=== PATIENT | female | born 1965 | race Caucasian/White ===

== ENCOUNTER 2018-07-30 03:19 | Inpatient (IN) ==
[2018-07-30] MEDS ORDERED: FUROSEMIDE 40 MG/4 ML VIAL IV STA (03:31)
[2018-07-30] MEDS ORDERED: ALBUT/IPRATROP 3MG/0.5MG NEB 3 ML VIAL ONE (03:31)
[2018-07-30] MEDS ORDERED: ALBUT/IPRATROP 3MG/0.5MG NEB 3 ML VIAL NEB STA (03:31)
[2018-07-30 03:43] LABS: Hematocrit (blood only) 41.8 % (37-47); Hemoglobin 13.9 g/dL (12.0-16.0); Mean Corpuscular Hgb Conc 33.3 g/dL (32-36); Mean Corpuscular Volume 86.9 fL (80-100); Mean Platelet Volume 10.1 fL (7.4-10.4); Platelet Count 375 K/uL (130-400); RDW Coefficient of Variation 16.4 % (11.5-14.5); RDW Standard Deviation 52.4 fL (36.4-46.3); Red Blood Count 4.81 M/uL (4.2-5.4); White Blood Count 14.12 K/uL (4.8-10.8)
[2018-07-30 03:59] LABS: Prothrombin Time 10.1 Seconds (9.0-12.0)
[2018-07-30 04:21] LABS: Alanine Aminotransferase 33 U/L (12-78); Albumin Globulin Ratio 0.7 (0.9-2); Albumin Level 3.4 gm/dl (3.4-5.0); Alkaline Phosphatase 80 U/L (45-117); Aspartate Aminotransferase 28 U/L (15-37); BUN Creatinine Ratio 14.6 (10-20); Bilirubin,Total 0.2 mg/dl (0.2-1); Blood Urea Nitrogen 10 mg/dl (7-18); Carbon Dioxide 23 mmol/L (21-32); Chloride 107 mmol/L (98-107); Creatinine Clr Calc Pharmacy 116.1 ml/min; Est GFR (African American) 114.3; Est GFR (Non-African American) 98.6; Globulin 4.8 gm/dl (2.5-4.0); Glucose 246 mg/dl (70-99); NT Pro B Type Natriuretic Pept 872 pg/ml (0-900); Potassium 3.8 mmol/L (3.5-5.1); Sodium 138 mmol/L (136-145); Total Protein 8.2 gm/dl (6.4-8.2); Troponin I < 0.015 ng/ml (0-0.045)
[2018-07-30 04:37] LABS: Basophils # (auto) 0.07 K/uL (0-0.2); Basophils % (auto) 0.5 %; Eosinophils # (auto) 0.53 K/uL (0-0.5); Eosinophils % (auto) 3.8 %; Immature Granulocytes # (auto) 0.06 K/uL (0.00-0.02); Immature Granulocytes % (auto) 0.4 %; Lymphocytes # (auto) 5.13 K/uL (1.2-3.4); Lymphocytes % (auto) 36.3 %; Monocytes # (auto) 0.81 K/uL (0.11-0.59); Monocytes % (auto) 5.7 %; Neutrophils # (auto) 7.52 K/uL (1.4-6.5); Neutrophils % (auto) 53.3 %
[2018-07-30 05:06] LABS: Appearance Urine Clear (Clear); Bilirubin Urine Negative (Negative); Blood Urine Negative (Negative); Color Urine Yellow; Glucose Urine UA 1+ (Negative); Ketones Urine Negative (Negative); Leukocyte Esterase Urine Negative (Negative); Nitrite Urine Negative (Negative); Protein Urine Negative (Negative); Specific Gravity Urine 1.012 (1.000-1.030); Urobilinogen Urine Negative (Negative); pH Urine 5.5 (4.5-7.5)
[2018-07-30] MEDS ORDERED: OPTIRAY 320 125ml IV PRN (05:14)
--- NOTE | 2018-07-30 06:16 | Emergency Department Note ---
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 Per EMS, the patient was picked up at a hotel with a O2 sat in the 70s. 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 The patient reports that the SOB occurred suddenly and woke her up from her sleep, noting that she felt normal before bed. She complains of left-sided chest pain and "feeling like there was gas" in her abdomen. The patient denies any current nausea. She notes that she has a hernia and diabetes. She denies any history of emphysema and COPD. The patient reports that she is a current every day smoker. She states that she traveled to [place] from [place] within the past few days. The patient notes that she takes Lasix. Home Medications Home Medications Medication Instructions Recorded Confirmed Type amlodipine 10 mg PO DAILY 07/30/18 07/30/18 History aspirin 81 mg PO DAILY 07/30/18 07/30/18 History furosemide [Lasix] 20 mg PO DAILY 07/30/18 07/30/18 History glimepiride 2 mg PO BID 07/30/18 07/30/18 History ibuprofen 800 mg PO TID PRN 07/30/18 07/30/18 History insulin glargine [Lantus Solostar 70 unit SUBCUT HS 07/30/18 07/30/18 History U-100 Insulin] losartan 50 mg PO DAILY 07/30/18 07/30/18 History metformin 1,000 mg PO BID 07/30/18 07/30/18 History metoprolol tartrate 50 mg PO BID 07/30/18 07/30/18 History omeprazole 20 mg PO BID 07/30/18 07/30/18 History sitagliptin [Januvia] 100 mg PO DAILY 07/30/18 07/30/18 History Allergies Allergy/AdvReac Type Severity Reaction Status Date / Time ketorolac [From Toradol] Allergy Unknown Unknown Verified 07/30/18 03:57 Past Med/Surg History Medical History Diabetes Hernia Hypertension Surgical History H/O knee surgery Family History Father Diabetes Mother Cancer Other Heart disease Hypertension Social History Feels Safe at Home: Yes Smoking Status: Current every day smoker Review of Systems See HPI for pertinent positives & negatives. and A total of 10 systems reviewed and were otherwise negative Physical Exam Vital Signs Vital Signs - 24 hr 07/30/18 03:30 07/30/18 03:31 07/30/18 03:37 Temperature 36.7 C Temperature Source Oral Sepsis Recent Fever Within 48 Hours No Sepsis Action Taken by Nursing No Action Required Pulse Rate 114 H Pulse Rate [Left Finger] Respiratory Rate 30 H 26 H Respiratory Effort / Characteristics Spontaneous Labored Respiratory Depth Respiratory Pattern Blood Pressure 152/101 H Blood Pressure [Right Arm] Blood Pressure Mean 118 Blood Pressure Mean [Right Arm] Blood Pressure Position Sitting Blood Pressure Position [Right Arm] Pulse Oximetry 94 94 95 Oxygen Delivery Method CPAP CPAP BiPAP Fraction of Inspired Oxygen 50 07/30/18 03:40 07/30/18 03:57 07/30/18 04:30 Temperature Temperature Source Sepsis Recent Fever Within 48 Hours Sepsis Action Taken by Nursing Pulse Rate 113 H Pulse Rate [Left Finger] 104 H 100 H Respiratory Rate 26 H 28 H 26 H Respiratory Effort / Characteristics Non-Labored Spontaneous Spontaneous Spontaneous Respiratory Depth Normal Normal Normal Respiratory Pattern Regular Regular Regular Blood Pressure Blood Pressure [Right Arm] 138/82 126/75 Blood Pressure Mean Blood Pressure Mean [Right Arm] 100 92 Blood Pressure Position Blood Pressure Position [Right Arm] Sitting Lying Pulse Oximetry 95 96 98 Oxygen Delivery Method CPAP CPAP Fraction of Inspired Oxygen 50 07/30/18 05:17 Temperature Temperature Source Sepsis Recent Fever Within 48 Hours Sepsis Action Taken by Nursing Pulse Rate Pulse Rate [Left Finger] 99 H Respiratory Rate 22 Respiratory Effort / Characteristics Non-Labored Spontaneous Respiratory Depth Normal Respiratory Pattern Regular Blood Pressure Blood Pressure [Right Arm] 145/80 H Blood Pressure Mean Blood Pressure Mean [Right Arm] 101 Blood Pressure Position Blood Pressure Position [Right Arm] Pulse Oximetry 5 L Oxygen Delivery Method Oxymask Fraction of Inspired Oxygen General: Appears moderately SOB with a CPAP in place. HEENT: Head - normocephalic and atraumatic Pupils are equal, round, and reactive to light. Extraocular eye muscles are intact, and sclera are anicteric. Nose - moist nasal mucosa without discharge. Mouth - moist buccal mucosa. Oropharynx is nonerythematous and there is no tonsillar exudate or edema noted. Neck: Supple; no JVD, nuchal rigidity, cervical lymphadenopathy, or auscultated bruits. Heart: Tachycardic rate and regular rhythm. There is a normal S1 and S2 with no murmurs, clicks, or gallops appreciated. Lungs: Diffuses rales with wheezes at the lung bases. Abdomen: Soft, completely nontender, nondistended, with good bowel sounds. There are no palpable pulsatile masses or hepatosplenomegaly. There is no guarding, rigidity, or rebound noted. Extremities: No evidence of cyanosis, clubbing, or edema. There are easily palpable peripheral pulses. Skin: warm and dry with good turgor and no rashes. Course 0320: The patient was evaluated in room B04. A complete history and physical exam was performed. A saline lock was initiated and labs were drawn as above. The patient was placed back on CPAP. Without supplemental oxygen, her oxygen saturations were in the 80s. A portable chest x-ray was obtained. A twelve- lead EKG was obtained. 0331: Duoneb 3 ml NEB, Lasix 40 mg IV 0409: I checked on the patient, and she is breathing more easily. She was getting X-rays done. 0442: I reevaluated the patient, and she said that she feels slightly better. However, she still has not urinated. The staff is trying to get her off a CPAP and onto a regular mask to send her to CT. 0531: I reassessed the patient. She remains on an OxyMask and is satting at 94%. she has urinated. The patient states that she was in the hospital one month ago in [place]. She had an EKG done there. We are trying to obtain that by fax. 0544: I spoke with Dr. Theodore, [facility] hospitalist, about the patient's case. He will further evaluate the patient. Consultations Consultation #1: I spoke with Dr. Theodore, [facility] hospitalist, about the patient's case. He will further evaluate the patient. Time: 05:44 Administered Medications Ioversol (Optiray 320 125ml) 94 ml IV ONCE PRN PRN Reason: Interaction Checking Stop: 08/03/18 05:13 Last Admin: 07/30/18 05:14 Dose: 94 ml Documented by: [id number] Discontinued Medications Albuterol (Duoneb) Confirm Administered Dose 3 ml .ROUTE .STK-MED ONE Stop: 07/30/18 03:32 Last Admin: 07/30/18 03:49 Dose: Not Given Documented by: [id number] Albuterol (Duoneb) 3 ml NEB NOW STA Stop: 07/30/18 03:32 Last Admin: 07/30/18 03:37 Dose: 3 ml Documented by: [id number] Furosemide (Lasix) 40 mg IV NOW STA Stop: 07/30/18 03:32 Last Admin: 07/30/18 03:52 Dose: 40 mg Documented by: [id number] Medical Decision Making Differential Diagnosis The differential diagnosis includes: CHF, pneumonia, COPD exacerbation, and PE. Medical Records Attestation: I reviewed the patient's medical records. Home Medications Current Medication List: was personally reviewed by me Laboratory Data Attestation: I reviewed the patient's lab results. Result diagrams: 07/30/18 03:25 07/30/18 03:25 Lab Results 07/30/18 07/30/18 07/30/18 Range/Units 03:25 03:25 03:25 WBC 14.12 H (4.8-10.8) K/uL RBC 4.81 (4.2-5.4) M/uL Hgb 13.9 (12.0-16.0) g/dL Hct 41.8 (37-47) % MCV 86.9 (80-100) fL MCH 28.9 (25-34) pg MCHC 33.3 (32-36) g/dL RDW Std Deviation 52.4 H (36.4-46.3) fL RDW Coeff of Renay 16.4 H (11.5-14.5) % Plt Count 375 (130-400) K/uL MPV 10.1 (7.4-10.4) fL Immature Gran % (Auto) 0.4 % Neut % (Auto) 53.3 % Lymph % (Auto) 36.3 % Schuyler % (Auto) 5.7 % Eos % (Auto) 3.8 % Baso % (Auto) 0.5 % Immature Gran # (Auto) 0.06 H (0.00-0.02) K/uL Neut # (Auto) 7.52 H (1.4-6.5) K/uL Lymph # (Auto) 5.13 H (1.2-3.4) K/uL Schuyler # (Auto) 0.81 H (0.11-0.59) K/uL Eos # (Auto) 0.53 H (0-0.5) K/uL Baso # (Auto) 0.07 (0-0.2) K/uL PT 10.1 (9.0-12.0) Seconds INR 1.0 (0.9-1.1) APTT 26.0 (21.0-31.0) Seconds PTT Ratio 1.0 Sodium 138 (136-145) mmol/L Potassium 3.8 (3.5-5.1) mmol/L Chloride 107 (98-107) mmol/L Carbon Dioxide 23 (21-32) mmol/L Anion Gap 8.0 (3-11) BUN 10 (7-18) mg/dl Creatinine 0.71 (0.6-1.2) mg/dl Est Cr Clr Drug Dosing 116.1 ml/min Est GFR ( Amer) 114.3 Est GFR (Non-Af Amer) 98.6 BUN/Creatinine Ratio 14.6 (10-20) Glucose 246 H (70-99) mg/dl Calcium 9.0 (8.5-10.1) mg/dl Total Bilirubin 0.2 (0.2-1) mg/dl AST 28 (15-37) U/L ALT 33 (12-78) U/L Alkaline Phosphatase 80 (45-117) U/L Troponin I < 0.015 (0-0.045) ng/ml NT-Pro-B Natriuret Pep 872 (0-900) pg/ml Total Protein 8.2 (6.4-8.2) gm/dl Albumin 3.4 (3.4-5.0) gm/dl Globulin 4.8 H (2.5-4.0) gm/dl Albumin/Globulin Ratio 0.7 L (0.9-2) Specimen Hemolysis Urine Color Urine Appearance (Clear) Urine pH (4.5-7.5) Ur Specific [place] (1.000-1.030) Urine Protein (Negative) Urine Glucose (UA) (Negative) Urine Ketones (Negative) Urine Blood (Negative) Urine Nitrite (Negative) Urine Bilirubin (Negative) Urine Urobilinogen (Negative) Ur Leukocyte Esterase (Negative) 07/30/18 Range/Units 04:55 WBC (4.8-10.8) K/uL RBC (4.2-5.4) M/uL Hgb (12.0-16.0) g/dL Hct (37-47) % MCV (80-100) fL MCH (25-34) pg MCHC (32-36) g/dL RDW Std Deviation (36.4-46.3) fL RDW Coeff of Renay (11.5-14.5) % Plt Count (130-400) K/uL MPV (7.4-10.4) fL Immature Gran % (Auto) % Neut % (Auto) % Lymph % (Auto) % Schuyler % (Auto) % Eos % (Auto) % Baso % (Auto) % Immature Gran # (Auto) (0.00-0.02) K/uL Neut # (Auto) (1.4-6.5) K/uL Lymph # (Auto) (1.2-3.4) K/uL Schuyler # (Auto) (0.11-0.59) K/uL Eos # (Auto) (0-0.5) K/uL Baso # (Auto) (0-0.2) K/uL PT (9.0-12.0) Seconds INR (0.9-1.1) APTT (21.0-31.0) Seconds PTT Ratio Sodium (136-145) mmol/L Potassium (3.5-5.1) mmol/L Chloride (98-107) mmol/L Carbon Dioxide (21-32) mmol/L Anion Gap (3-11) BUN (7-18) mg/dl Creatinine (0.6-1.2) mg/dl Est Cr Clr Drug Dosing ml/min Est GFR ( Amer) Est GFR (Non-Af Amer) BUN/Creatinine Ratio (10-20) Glucose (70-99) mg/dl Calcium (8.5-10.1) mg/dl Total Bilirubin (0.2-1) mg/dl AST (15-37) U/L ALT (12-78) U/L Alkaline Phosphatase (45-117) U/L Troponin I (0-0.045) ng/ml NT-Pro-B Natriuret Pep (0-900) pg/ml Total Protein (6.4-8.2) gm/dl Albumin (3.4-5.0) gm/dl Globulin (2.5-4.0) gm/dl Albumin/Globulin Ratio (0.9-2) Specimen Hemolysis Urine Color Yellow Urine Appearance Clear (Clear) Urine pH 5.5 (4.5-7.5) Ur Specific [place] 1.012 (1.000-1.030) Urine Protein Negative (Negative) Urine Glucose (UA) 1+ H (Negative) Urine Ketones Negative (Negative) Urine Blood Negative (Negative) Urine Nitrite Negative (Negative) Urine Bilirubin Negative (Negative) Urine Urobilinogen Negative (Negative) Ur Leukocyte Esterase Negative (Negative) Imaging Data Attestation: I personally reviewed and interpreted this imaging study as follows: My Impression: XR CHEST 1V: Severe pulmonary edema with cardiomegaly. Radiologist's Impression: Radiology results as stated below per my review and the radiologist's interpretation: CTA CHEST: No central PE. No aortic aneurysm or dissection. Borderline cardiomegaly. No significant pericardial effusion. Multilevel mixed interstitial and alveolar disease probably represents pulmonary edema. Small pleural effusions. Prominent mediastinal/hilar lymph nodes may be reactive. Findings likely raise the possibility of congestive heart failure exacerbation. Superimposed infection no excluded in the right clinical setting. Radiologist: Juanito Corrigan MD Study ready at 05:20 and initial results transmitted at 05:38. 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 The patient woke up suddenly from sleep with severe orthopnea and shortness of breath. Upon EMS arrival, O2 saturations were in the 70s. She denies ever having a previous episode of CHF. She does take furosemide but states this is for swelling. Patient is a heavy smoker as well as a diabetic. She denies ever having a cardiac event. She was having some left-sided chest pain upon EMS arrival. They administered 4 sublingual nitroglycerin to help with her blood pressure, chest pain as well as her presentation of congestive heart failure. They placed her on CPAP which brought her oxygen saturations into the low 90s. Chest x-ray confirms moderate to severe pulmonary edema. Patient had a negative troponin. EKG was tachycardic and showed ST segment depression in inferior and lateral leads. We are trying to obtain a previous EKG for comparison. The patient went for CT scan of the chest to rule out PE. This was negative. I discussed the case with the [facility] Hospitalist and they will evaluate for further management. Impression & Plan Pulmonary edema, Hypoxia, Chest pain Critical Care Time I have personally spent 60 minutes of critical care time in the direct management of this patient. This includes bedside care, interpretation of diagnostic studies, and testing, discussion with consultants, patient, and family members, and other required patient management activities. This 60 minutes is in excess of all separately billable procedures. Critical Care Time: Yes Total Critical Care Time: 60 Discharge Plan Visit Data Chief Complaint: Respiratory Problems Stated Complaint: breathing difficulty ED Provider: Mariana Jenkins Discharge Problem: Pulmonary edema, Hypoxia, Chest pain Patient Disposition: Being Evaluated by Hospitalist Forms Stand Alone Forms: My [facility] Prescriptions Prescriptions: No Action amlodipine 10 mg Tablet 10 mg PO DAILY RF: 0 Lantus Solostar U-100 Insulin 100 unit/mL (3 mL) Insulin Pen 70 unit SUBCUT HS RF: 0 losartan 50 mg Tablet 50 mg PO DAILY RF: 0 aspirin 81 mg Tablet,Delayed Release (Dr/Ec) 81 mg PO DAILY RF: 0 metoprolol tartrate 50 mg Tablet 50 mg PO BID RF: 0 furosemide [Lasix] 20 mg Tablet 20 mg PO DAILY RF: 0 metformin 1,000 mg Tablet 1,000 mg PO BID RF: 0 ibuprofen 800 mg Tablet 800 mg PO TID PRN (Reason: Pain) RF: 0 Januvia 100 mg Tablet 100 mg PO DAILY RF: 0 glimepiride 2 mg Tablet 2 mg PO BID RF: 0 omeprazole 20 mg Capsule,Delayed Release(Dr/Ec) 20 mg PO BID RF: 0 Referrals Referrals: PCP,NO [Primary Care Provider] - Discharge Problem: Pulmonary edema Qualifiers: Chronicity: acute Qualified Code(s): J81.0 - Acute pulmonary edema Chest pain Qualifiers: Chest pain type: unspecified Qualified Code(s): R07.9 - Chest pain, unspecified The scribe's documentation has been prepared under my direction and personally reviewed by me in its entirety. I confirm that the note above accurately reflects all work, treatment, procedures, and medical decision making performed by me.
--- NOTE | 2018-07-30 06:24 | History & Physical Report ---
Date of Service July 30, 2018 Assessment & Plan (1) Pulmonary edema: 53 y/o F Hx HTN, DM II, LE edema, obese, smoker. Presented to the ER in moderate respiratory distress. She is in [place] visiting her son who has a welding job in the area. She states she was in her normal state of health the prior evening and had enjoyed a shrimp platter at [employer]. She became progressively short of breath this AM. She has a cough which she states is chronic and denies fevers. She described central chest pressure to EMS on route to the hospital. She denies any nausea, vomiting or diaphoresis. She received 4 NTG from EMS and is CP-free at the time of admission. A CTA of the chest was obtained in the ER and demonstrated pulmonary edema. She denies a history of CAD or CHF. The pt responded well to IV Lasix. Initial labs including cardiac enzymes are unremarkable. An EKG displayed lateral and inferior inversions with slight ST depressions. This was unchanged when repeated after her respiratory status improved. 1) Hypoxia - resp distress. New onset CHF. echo and cardiology consult requested. IV Lasix BID, I/O, daily weights. Cont B B locker. R/O acute TX as cause 2) CP - serial enzymes, ASA, B jasmina - she will likely need an eventual cath although if she is stable and an acute TX is ruled out, she could likely have this done in [place] 3) DM II - placed on a SS 4) HTN - cont metoprolol, Losartan, Norvasc 5) I have explained to her in no uncertain terms that smoking is an ill-advised, expensive habit Full code - Heparin prophylaxis Total time for this admit including review of labs, imaging, EKG - discussion with pt and ER attending - 38 min Present on Admission?: Yes History of Present Illness Chief Complaint: SOB Primary Care Provider: NO PCP 53 y/o F Hx HTN, DM II, LE edema, obese, smoker. Presented to the ER in moderate respiratory distress. She is in [place] visiting her son who has a welding job in the area. She states she was in her normal state of health the prior evening and had enjoyed a shrimp platter at [employer]. She became progressively short of breath this AM. She has a cough which she states is chronic and denies fevers. She described central chest pressure to EMS on route to the hospital. She denies any nausea, vomiting or diaphoresis. She received 4 NTG from EMS and is CP-free at the time of admission. A CTA of the chest was obtained in the ER and demonstrated pulmonary edema. She denies a history of CAD or CHF. The pt responded well to IV Lasix. Initial labs including cardiac enzymes are unremarkable. An EKG displayed lateral and inferior inversions with slight ST depressions. This was unchanged when repeated after her respiratory status improved. PMH: 1) HTN 2) DM II 3) LE edema 4) Smoker Social: Smokes 2 packs of cigarettes daily, does not drink Family: Father due to ETOH cirrhosis Mother due to ovarian CA Allergies Allergy/AdvReac Type Severity Reaction Status Date / Time ketorolac [From Toradol] Allergy Unknown Unknown Verified 07/30/18 03:57 Home Medications Home Medications Medication Instructions Recorded Confirmed Type amlodipine 10 mg PO DAILY 07/30/18 07/30/18 History aspirin 81 mg PO DAILY 07/30/18 07/30/18 History furosemide [Lasix] 20 mg PO DAILY 07/30/18 07/30/18 History glimepiride 2 mg PO BID 07/30/18 07/30/18 History ibuprofen 800 mg PO TID PRN 07/30/18 07/30/18 History insulin glargine [Lantus Solostar 70 unit SUBCUT HS 07/30/18 07/30/18 History U-100 Insulin] losartan 50 mg PO DAILY 07/30/18 07/30/18 History metformin 1,000 mg PO BID 07/30/18 07/30/18 History metoprolol tartrate 50 mg PO BID 07/30/18 07/30/18 History omeprazole 20 mg PO BID 07/30/18 07/30/18 History sitagliptin [Januvia] 100 mg PO DAILY 07/30/18 07/30/18 History Past Med/Surg History Medical History Diabetes Hernia Hypertension Surgical History H/O knee surgery Family History Father Diabetes Mother Cancer Other Heart disease Hypertension Social History Feels Safe at Home: Yes Smoking Status: Current every day smoker Review of Systems Review of Systems: Gen: Denies fevers, night sweats, rigors, fatigue, malaise, weight loss/gain ENT: Denies congestion, throat pain, hearing loss Eyes: Denies acute visual changes CV: Central CP/pressure as above Pulmonary: Progressive SOB, chronic cough GI: Denies N/V, diarrhea, constipation Neuro: Denies acute or unilateral weakness, acute gait impairment, headache or acute visual changes Musculoskeletal: Denies joint pain, inflammation - chronic LE edema Endocrine: Denies polydipsia, polyuria Skin: Denies acute rashes or ulcers Physical Exam Physical Exam: General: AAO x 3, no distress ENT: No erythema or exudates, no thrush Eyes: XIMENA, EOMI Head and neck: Normocephalic, atraumatic, No JVD, neck is supple. Chest/heart: Nontender, S1,2, RRR, no murmurs, no gallops Lungs: BL crackles to mid lungs Abdomen: Nontender, nondistended, BS+ Neuro: AAO x 3, speech is clear, no unilateral weakness or loss of sensation, coordination intact Musculoskeletal: No joint inflammation, muscle tenderness, FROM Skin: No acute rashes or ulcers Extremities: No clubbing, cyanosis - BL LE edema Results & Data Vital Signs (Past 12 Hours) Vital Signs Temp Pulse Pulse Resp BP BP Pulse Ox 07/30/18 05:17 99 H 22 145/80 H 5 L 07/30/18 04:30 100 H 26 H 126/75 98 07/30/18 03:57 104 H 28 H 138/82 96 07/30/18 03:40 113 H 26 H 95 07/30/18 03:37 26 H 95 07/30/18 03:31 98.1 F 114 H 30 H 152/101 H 94 07/30/18 03:30 94 Diagnostic Findings CTA: pulmonary edema EKG: Sinus, PVCs, ST inversions and slight depressions lat and inf leads - may be consistent with pulm pattern (1) Pulmonary edema Chronicity: acute Qualified Code(s): J81.0 - Acute pulmonary edema
--- NOTE | 2018-07-30 06:33 | XRay Report ---
XR chest 1V portable CLINICAL HISTORY: Dyspnea dyspnea COMPARISON STUDY: No previous studies for comparison. FINDINGS: Findings consistent with pulmonary edema. Heart is moderately enlarged. Diffuse bilateral p rominence of the pulmonary vasculature. IMPRESSION: Pulmonary edema The above report was generated using voice recognition software. It may contain grammatical, syntax or spelling errors. Electronically signed by: Anthony Padilla M.D. 07/30/2018 6:31 AM
--- NOTE | 2018-07-30 06:34 | CT Scan Report ---
CT angio chest PE protocol CT DOSE: 1000.35 mGy.cm HISTORY: Chest pain PE TECHNIQUE: Multiaxial CT images of the chest were performed following the intravenous administration of contrast to evaluate the pulmonary arteries. Maximal intensity projection images were also obtaine d. A dose lowering technique was utilized adhering to the principles of ALARA. COMPARISON STUDY: None. FINDINGS: Thoracic aorta is normal in course and caliber. Findings consistent with pulmonary edema. Pulmonary vasculature enhances appropriately. Minimal atherosclerotic change thoracic aorta. Several reactive mediastinal and hilar axillary nodes. Moderate cardiomegaly. IMPRESSION: 1. No evidence of pulmonary embolus. 2. Pulmonary edema. 3. Very small bilateral pleural effusions. 4. Nonspecific mediastinal and hilar adenopathy The above report was generated using voice recognition software. It may contain grammatical, syntax or spelling errors. Electronically signed by: Anthony Padilla M.D. 07/30/2018 6:33 AM
[2018-07-30] MEDS ORDERED: MAGNESIUM HYDROXIDE SUSP 30 ML UDC PO PRN (07:27)
[2018-07-30] MEDS ORDERED: POLYETHYLENE (MIRALAX) 17 GM PACK PO PRN (07:27)
[2018-07-30] MEDS ORDERED: NICOTINE 21 MG/24 HR TDSY TD PRN (07:27)
[2018-07-30] MEDS ORDERED: ALUMINUM/MAGNESIUM SUSP 30 ML UDC PO PRN (07:27)
[2018-07-30] MEDS ORDERED: ONDANSETRON INJ 2 MG/ML 2 ML VIAL IV PRN (07:27)
[2018-07-30] MEDS ORDERED: ZOLPIDEM TARTRATE 5 MG TAB PO PRN (07:27)
[2018-07-30] MEDS ORDERED: ACETAMINOPHEN 325 MG TAB PO PRN (07:27)
[2018-07-30] MEDS: INSULIN ASPART 100 UNITS/ML 3 ML PEN SC SCH ×4 (07:30→20:10)
[2018-07-30] MEDS ORDERED: NITROGLYCERIN 2% OINTMENT 30GM TUBE EXT SCH (08:30)
[2018-07-30] MEDS ORDERED: LOSARTAN POTASSIUM 50 MG TAB PO SCH ×3 (09:00→21:00)
[2018-07-30] MEDS: FUROSEMIDE 40 MG in SYRINGE 0 ML IV SCH ×2 (09:46→16:51)
[2018-07-30] MEDS: AMLODIPINE BESYLATE 5 MG TAB PO SCH (09:46)
[2018-07-30] MEDS: POTASSIUM CHLORIDE 20 MEQ TABCR PO SCH ×2 (09:48→20:08)
[2018-07-30] MEDS: METOPROLOL TARTRATE 50 MG TAB PO SCH ×2 (09:48→20:09)
[2018-07-30] MEDS: PANTOprazole 40 MG TAB PO SCH ×2 (09:48→20:09)
[2018-07-30] MEDS: ASPIRIN 81 MG ECTAB PO SCH (09:48)
[2018-07-30] MEDS ORDERED: FUROSEMIDE 20 MG in SYRINGE 0 ML IV ONE (12:00)
[2018-07-30] MEDS: ROSUVASTATIN CALCIUM 10 MG TAB PO SCH (12:43)
--- NOTE | 2018-07-30 13:17 | Consultation Report ---
DATE OF CONSULTATION: 07/30/2018 REQUESTING: Ward Lee MD. LITHOGRAPHERS PRINTER: Maurizio Ross DO, [facility]. REASON FOR CONSULTATION: Acute systolic heart failure and shortness of breath. Dear Robin, Thank you for requesting cardiology consultation on Evangelist with regards to her episode of heart failure last evening and associated shortness of breath. She is here from [place]. She is a longstanding diabetic with a family history of premature heart disease and chronic tobacco use. She was visiting her son who is doing work in the [place] area. They went to [employer] last evening. She went to sleep as she normally would, sleeping on 2 pillows and she woke up approximately 1:00 in the morning with significant dyspnea. Of note, she did not take her Lasix yesterday as she takes at home because she was traveling. She has had worsening lower extremity edema. She also describes shortness of breath with activity, which is chronic for her. She can walk in the grocery store. She does not have any stairs at home. She can walk a short distance on the flat, but a long distance would cause her to be dyspneic. She denies any chest pressure or chest heaviness. She denies any palpitations or fluttering or feeling her heart racing. She denies any fevers, chills, sweats, cough, productive sputum. Her appetite is stable. She denies any dark/black/tarry stools or blood in her stool. It sounds like she lives a relatively sedentary life. She denies a prior history of myocardial infarction, stroke, or rheumatic fever. The rest of the review of systems is otherwise negative. PAST MEDICAL HISTORY: 1. Diabetes mellitus type 2, longstanding and uncontrolled. 2. Chronic tobacco abuse. 3. Hyperlipidemia, refusing statin therapy in the past. 4. Hypertension. 5. Obesity. 6. GERD. 7. Osteoarthritis. FAMILY HISTORY: Father had diabetes. Mother had cancer. There is a family history of heart disease. SOCIAL HISTORY: She smokes 2 packs a day. She denies any alcohol or drug abuse. ALLERGIES: KETOROLAC. MEDICATIONS: Reviewed in the electronic medical record. PHYSICAL EXAMINATION: GENERAL: She is awake, alert, oriented x3. She looks much older than her stated age. VITAL SIGNS: Her heart rate is 97, blood pressure 145/87, respirations 16. Her sats are 90% on room air. HEENT: Mildly reduced carotid upstrokes. She has a very loud left carotid bruit, I did not appreciate a bruit on the right. Her sclerae are anicteric. Her hearing is normal. LUNGS: Decreased breath sounds with faint crackles in the bases bilaterally. HEART: Regular rate and rhythm. No appreciable murmurs, rubs or gallops. ABDOMEN: Soft, nontender, chronically distended. Positive bowel sounds. EXTREMITIES: Trace to mild bilateral lower extremity edema. PSYCHIATRIC: Her affect appeared appropriate. DIAGNOSTIC STUDIES: Echocardiogram: Mild ischemic cardiomyopathy with multiple regional wall motion abnormalities involving the mid to distal inferior wall, distal anterior wall, apex and the mid to distal septum. EF 45%-50%. The right ventricle was not well seen. She has mild aortic stenosis with heavy calcification of the aortic valve leaflets into the intravalvular fibrosa. Her pulmonary artery pressures could not be assessed. LABORATORY STUDIES: White count of 14.12, platelet count of 375. First troponin is negative, second is 0.047. Sodium 138, potassium 3.8, BUN 10, creatinine 0.71. AST and ALT are normal. CTA of her chest, no evidence of pulmonary embolism. She does have pulmonary edema. IMPRESSION: 1. Nglwy-yr-qrvsgkh systolic heart failure. 1b. Mild ischemic cardiomyopathy. 2. Echocardiogram consistent with multivessel coronary artery disease. 3. Diabetes mellitus type 2, uncontrolled. 4. Hypertension. 5. Hyperlipidemia. 6. Obesity. 7. Previous refusal to take statin therapy. As I discussed with Dr. Lee at the bedside, I will continue to diurese her. She has already received 40 mg of IV Lasix in the ER. We will give her additional 20 mg today. I would increase her losartan from 50 mg to 100 mg given her diabetes and elevated blood pressures. In discussion, she describes a relative who was started on statin therapy, who then had significant psychiatric disease and was institutionalized. She has thought that the statin therapy caused this. I did reassure her that statins do not usually do that, and given her significant risk factors for cardiovascular disease, she is agreeable now to consider a statin therapy. We will start Crestor 10 mg as I negotiated at least a low dose at this point. She needs a carotid ultrasound given her bruit on the left. Additionally, I discussed with her given the likelihood she has 2-vessel coronary artery disease, she should have a cardiac catheterization to define her coronary anatomy given her significant risk factors for coronary artery disease. It is likely given her longstanding diabetes that she may not get typical anginal symptoms. She would like to think about that as well as think about staying in the hospital at this point versus returning to [place] where she lives. I discussed with her assuming she stays in the hospital, continue to adjust her medical regimen. We will plan for catheterization on Wednesday given the fact she is stable. Thank you for allowing us to participate in her care.
--- NOTE | 2018-07-30 14:13 | Hospitalist Progress Note ---
Date of Service July 30, 2018 Assessment & Plan (1) Acute on chronic clinical systolic heart failure: Continue intravenous Lasix diuresis. Monitor intake and output. Repeat chest x-ray tomorrow Present on Admission?: Yes (2) Ischemic cardiomyopathy: Cardiac echo reveals regional wall motion abnormalities and multivessel coronary artery distribution. Ejection fraction 45%. Cardiac catheterization recommended by cardiology. Medications have been adjusted. Present on Admission?: Yes (3) Poorly controlled type 2 diabetes mellitus: Continue diabetic diet and sliding scale insulin coverage. Metformin is on hold. Hemoglobin A1c pending. Present on Admission?: Yes (4) Acute respiratory failure with hypoxia: The patient presented with labored respirations, respiratory rate 30, oxygen saturation on room air in the 70 to 80% range according to EMS. This has improved with diuresis since admission. Present on Admission?: Yes (5) Essential hypertension: Continue medication management Present on Admission?: Yes (6) DVT prophylaxis: Continue subcutaneous heparin therapy (7) Tobacco abuse: The patient was counseled to stop smoking Disposition the patient is discussing with her family whether she will stay at this institution for recommended cardiac catheterization on Wednesday. Present on Admission?: Yes Subjective The patient is somewhat tearful and wants to go home. She understands that she has congestive heart failure and probably has underlying coronary artery disease. Appreciate cardiology input. The cardiac echo is remarkable for regional wall motion abnormalities and multivessel distribution. Ejection fraction approximately 45%. She will continue with intravenous Lasix and chest x-ray will be repeated tomorrow. Hemoglobin A1c is pending and expected to be elevated. She had a slight troponin bump but does not appear to be rising. Cardiology has increased the losartan dosage and continued intravenous Lasix. The patient has agreed to low-dose statin therapy. Heart catheterization is recommended and the patient is considering staying until Wednesday to get this done here. She lives in [place]. Review of Systems Review of Systems: All systems reviewed & are unremarkable except as noted in HPI & below Respiratory: no cough and no pain on inspiration Shortness of breath has resolved Physical Exam Constitutional: + morbidly obese; no acute distress and no altered mental status Eyes: PERRL, conjunctivae normal, anicteric sclerae ENMT: external ear and nose normal, oropharynx normal Neck: trachea midline, no thyromegaly Respiratory: Faint bibasilar inspiratory rales. No midline rhonchi. No dullness to percussion Cardiovascular: RRR, no murmur, no edema Gastrointestinal (Abdomen): normal bowel sounds, soft, nontender, no hepatosplenomegaly Musculoskeletal: no cyanosis or clubbing, extremities motor strength 5/5 Neurologic: CN's II-XI intact bilaterally; no focal motor deficits Results & Data Vital Signs (Past 12 Hours) Vital Signs Temp Pulse Pulse Pulse Resp BP BP 07/30/18 11:59 36.7 C 90 20 144/85 H 07/30/18 07:37 36.6 C 97 H 16 145/87 H 07/30/18 06:42 99 H 24 150/78 H 07/30/18 06:25 100 H 24 149/102 H 07/30/18 05:17 99 H 22 145/80 H 07/30/18 04:30 100 H 26 H 126/75 07/30/18 03:57 104 H 28 H 138/82 07/30/18 03:40 113 H 26 H 07/30/18 03:37 26 H 07/30/18 03:31 36.7 C 114 H 30 H 152/101 H 07/30/18 03:30 Pulse Ox 07/30/18 11:59 90 07/30/18 07:37 90 07/30/18 06:42 94 07/30/18 06:25 92 07/30/18 05:17 5 L 07/30/18 04:30 98 07/30/18 03:57 96 07/30/18 03:40 95 07/30/18 03:37 95 07/30/18 03:31 94 07/30/18 03:30 94 Laboratory Results 07/30/18 03:25 07/30/18 03:25
--- NOTE | 2018-07-30 15:26 | Ultrasound Report ---
US carotid doppler BI HISTORY: Atherosclerotic change left bruit COMPARISON: None. TECHNIQUE: Real-time, grayscale, and color Doppler sonography of the carotid arteries was performed. Imaging reviewed in the transverse and longitudinal planes. All measurements were calculated based on NASCET criteria. FINDINGS: Antegrade flow is seen in the bilateral vertebral arteries. The brachial pressures are hemodynamically similar. Mild plaque formation bilaterally The peak systolic velocity within the right ICA is 61. The right systolic ratio is 0.7. The peak systolic velocity within the left ICA is 122. The left systolic ratio is 1.2 Instill note is made of a considerable increase in velocity of the left external carotid artery at 23 0 cm/s. IMPRESSION: 1. 40% narrowing left internal carotid artery. 2. 70% narrowing left external carotid artery. 3. No evidence for high-grade or critical stenosis. 4. Incidental note is made of moderate bilateral cervical adenopathy with nodes measuring up to 2 cm The above report was generated using voice recognition software. It may contain grammatical, syntax or spelling errors. Electronically signed by: Anthony Padilla M.D. 07/30/2018 3:23 PM
[2018-07-30] MEDS: HEPARIN SOD 5,000 UNIT/0.5 ML VIAL SQ SCH ×2 (15:33→23:20)
[2018-07-30] MEDS: LOSARTAN POTASSIUM 50 MG TAB PO SCH (20:08)
[2018-07-30] MEDS: INSULIN GLARGINE 100 UNIT/ML VIAL SQ SCH (23:19)
[2018-07-31] MEDS: HEPARIN SOD 5,000 UNIT/0.5 ML VIAL SQ SCH ×3 (05:44→23:03)
[2018-07-31 06:51] LABS: BUN Creatinine Ratio 12.2 (10-20); Calcium 9.2 mg/dl (8.5-10.1); Creatinine Clr Calc Pharmacy 130.8 ml/min; Est GFR (Non-African American) 104.4; Potassium 3.4 mmol/L (3.5-5.1)
[2018-07-31 06:55] LABS: Troponin I 0.038 ng/ml (0-0.045)
--- NOTE | 2018-07-31 07:22 | XRay Report ---
XR chest 1V portable HISTORY: 53 years-old Female CHF acute shortness of breath with congestive heart failure COMPARISON: Chest radiograph and CTA chest 07/30/2018 TECHNIQUE: Portable AP view of the chest FINDINGS: Cardiac silhouette is enlarged. There is pulmonary vascular congestion. Improved aeration of the bila teral lungs with decreased pulmonary edema. Trace bilateral pleural effusions with improved aeration of the lung bases. No pneumothorax or lobar airspace consolidation. Degenerative changes of the shoul ders and spine. IMPRESSION: 1. Cardiomegaly with decreased pulmonary edema. 2. Trace pleural effusions. 3. Improved aeration of the lung bases. The above report was generated using voice recognition software. It may contain grammatical, syntax o r spelling errors. Electronically signed by: Florentin Brady M.D. 07/31/2018 7:21 AM
[2018-07-31] MEDS: ROSUVASTATIN CALCIUM 10 MG TAB PO SCH (07:41)
[2018-07-31] MEDS: ASPIRIN 81 MG ECTAB PO SCH (07:41)
[2018-07-31] MEDS: POTASSIUM CHLORIDE 10 MEQ TABCR PO SCH ×2 (07:42→20:35)
[2018-07-31] MEDS: AMLODIPINE BESYLATE 5 MG TAB PO SCH (07:42)
[2018-07-31] MEDS: FUROSEMIDE 40 MG in SYRINGE 0 ML IV SCH ×2 (07:42→16:57)
[2018-07-31] MEDS: PANTOprazole 40 MG TAB PO SCH ×2 (07:43→20:34)
[2018-07-31] MEDS: METOPROLOL TARTRATE 50 MG TAB PO SCH ×2 (07:43→20:34)
[2018-07-31] MEDS: INSULIN ASPART 100 UNITS/ML 3 ML PEN SC SCH ×4 (07:44→20:38)
--- NOTE | 2018-07-31 12:24 | Hospitalist Progress Note ---
Date of Service July 31, 2018 Assessment & Plan (1) Acute on chronic clinical systolic heart failure: Continue intravenous Lasix diuresis. Monitor intake and output. Repeat chest x-ray today looks better (2) Ischemic cardiomyopathy: Cardiac echo reveals regional wall motion abnormalities and multivessel coronary artery distribution. Ejection fraction 45%. Cardiac catheterization recommended by cardiology. Medications have been adjusted. No recurrent chest discomfort since admission. Anticipate heart catheterization tomorrow (3) Poorly controlled type 2 diabetes mellitus: Continue diabetic diet and sliding scale insulin coverage. Metformin is on hold. Hemoglobin A1c pending. (4) Acute respiratory failure with hypoxia: The patient presented with labored respirations, respiratory rate 30, oxygen saturation on room air in the 70 to 80% range according to EMS. This has since resolved. (5) Essential hypertension: Continue medication management (6) DVT prophylaxis: Continue subcutaneous heparin therapy (7) Tobacco abuse: The patient was counseled to stop smoking Disposition the patient nearly left AMA this morning when she became angry. She now is willing to stay until tomorrow for cardiac catheterization. I will allow her to smoke outside in order to prevent her from leaving AMA. Subjective The patient became angry this morning when she was caught smoking in the bathroom. She was threatening to leave AMA but has since settled down when her [id number] came to the hospital and talk to her. She is agreeable to stay in order to have heart catheterization tomorrow. I will allow her to go outside and smoke in order to keep her from leaving AMA. She denies any recurrent chest discomfort since admission. Her chest x-ray today looks better. Continue intravenous Lasix. Review of Systems Review of Systems: All systems reviewed & are unremarkable except as noted in HPI & below Cardiovascular: + chest pain and + dyspnea Physical Exam Constitutional: + morbidly obese; no acute distress and no altered mental status Eyes: PERRL, conjunctivae normal, anicteric sclerae ENMT: external ear and nose normal, oropharynx normal Neck: trachea midline, no thyromegaly Respiratory: normal respiratory effort, lungs clear to auscultation Inspiratory rales have resolved Cardiovascular: RRR, no murmur, no edema Gastrointestinal (Abdomen): normal bowel sounds, soft, nontender, no hepatosplenomegaly Musculoskeletal: no cyanosis or clubbing, extremities motor strength 5/5 Neurologic: CN's II-XI intact bilaterally; no focal motor deficits Results & Data Vital Signs (Past 12 Hours) Vital Signs Temp Pulse Resp BP Pulse Ox 07/31/18 11:01 37.2 C 85 20 155/88 H 92 07/31/18 07:09 36.8 C 83 18 145/82 H 90 07/31/18 03:29 36.8 C 91 H 16 142/84 H 90 Laboratory Results 07/30/18 03:25 07/31/18 05:21
--- NOTE | 2018-07-31 12:35 | Cardiology Progress Note ---
Date of Service July 31, 2018 Subjective She denies any chest pain chest pressure or chest heaviness.She denies any shortness of breath PND orthopnea. Her lower extremity edema is improved her weight is down 3 kg. She has a palpitations or fluttering. Overall she is feeling better. She denies a cough fevers chills or sweats bleeding or bruising. Results & Data Vital Signs (Past 12 Hours) Vital Signs Temp Pulse Resp BP Pulse Ox 07/31/18 11:01 37.2 C 85 20 155/88 H 92 07/31/18 07:09 36.8 C 83 18 145/82 H 90 07/31/18 03:29 36.8 C 91 H 16 142/84 H 90 PHYSICAL EXAMINATION: GENERAL: She is awake, alert, oriented x3. She looks much older than her stated age. HEENT: Mildly reduced carotid upstrokes. She has a very loud left carotid bruit, I did not appreciate a bruit on the right. Her sclerae are anicteric. Her hearing is normal. LUNGS: Decreased breath sounds with faint crackles in the bases bilaterally. HEART: Regular rate and rhythm. No appreciable murmurs, rubs or gallops. ABDOMEN: Soft, nontender, chronically distended. Positive bowel sounds. EXTREMITIES: Trace to mild bilateral lower extremity edema. PSYCHIATRIC: Her affect appeared appropriate. DIAGNOSTIC STUDIES: Echocardiogram: Mild ischemic cardiomyopathy with multiple regional wall motion abnormalities involving the mid to distal inferior wall, distal anterior wall, apex and the mid to distal septum. EF 45%-50%. The right ventricle was not well seen. She has mild aortic stenosis with heavy calcification of the aortic valve leaflets into the intravalvular fibrosa. Her pulmonary artery pressures could not be assessed. IMPRESSION: 1. Osnkf-iu-ognxcpo systolic heart failure. 1b. Mild ischemic cardiomyopathy. 2. Echocardiogram consistent with multivessel coronary artery disease. 3. Diabetes mellitus type 2, uncontrolled. 4. Hypertension. 5. Hyperlipidemia. 6. Obesity. 7. Previous refusal to take statin therapy. 8. Loud carotid bruit on the left With a 40% internal carotid artery stenosis Evangelist seems to be doing better from a cardiac standpoint I did discuss the risks and benefits of cardiac catheterization with her to define her coronary anatomy especially in light of the fact that her echo looks like she has at least two- vessel coronary artery disease. She is agreeable to proceeding she understands the risks and benefits and wishes to proceed. I discussed the 100,000 risk of heart attack stroke dying with the procedure. We discussed the risk of contrast-induced nephropathy, allergic reaction to contrast, damage to a radial or femoral artery. We will arrange for catheterization tomorrow with Dr. Jose Russell. She will be n.p.o. after midnight her Lantus should be cut in half such that she takes 35 units of Lantus tonight rather than 70 units. She is not on metformin. I would hold her morning diuretics tomorrow. Once the results of her catheterization are known we can adjust her medical regimen further she will need to go home on diuretics but likely not as high a dose that she is currently on. Additionally she will need heart failure education.
[2018-07-31] MEDS: LOSARTAN POTASSIUM 50 MG TAB PO SCH (20:36)
[2018-07-31] MEDS ORDERED: INSULIN GLARGINE 100 UNIT/ML VIAL SC ONE (21:00)
[2018-08-01 06:01] LABS: Estimated Average Glucose 217 mg/dl; Hemoglobin A1C 9.2 % (4.5-5.6)
[2018-08-01] MEDS: HEPARIN SOD 5,000 UNIT/0.5 ML VIAL SQ SCH ×3 (06:26→20:58)
[2018-08-01 06:49] LABS: BUN Creatinine Ratio 15.2 (10-20); Calcium 8.8 mg/dl (8.5-10.1); Creatinine Clr Calc Pharmacy 122.2 ml/min; Est GFR (African American) 118.5; Est GFR (Non-African American) 102.3; Potassium 3.7 mmol/L (3.5-5.1)
[2018-08-01] MEDS: ROSUVASTATIN CALCIUM 10 MG TAB PO SCH (07:39)
[2018-08-01] MEDS: PANTOprazole 40 MG TAB PO SCH ×2 (07:39→19:54)
[2018-08-01] MEDS: POTASSIUM CHLORIDE 10 MEQ TABCR PO SCH ×2 (07:40→19:54)
[2018-08-01] MEDS: AMLODIPINE BESYLATE 5 MG TAB PO SCH (07:40)
[2018-08-01] MEDS: ASPIRIN 81 MG ECTAB PO SCH (07:41)
[2018-08-01] MEDS: METOPROLOL TARTRATE 50 MG TAB PO SCH ×2 (07:42→19:54)
--- NOTE | 2018-08-01 08:36 | Cardiology Progress Note ---
Date of Service August 01, 2018 Subjective She feels less short of breath this morning. She denies any chest pain or chest pressure. She still has some mild lower extremity edema worse on the right compared to the left. She is obese but denies any worsening abdominal distention. She denies any palpitations lightheadedness or dizziness. She is somewhat anxious as expected with regards to her catheterization today. Results & Data Vital Signs (Past 12 Hours) Vital Signs Temp Pulse Resp BP Pulse Ox 08/01/18 07:12 36.9 C 77 18 146/81 H 94 08/01/18 03:50 36.9 C 78 19 137/81 94 07/31/18 23:32 36.8 C 79 17 154/84 H 94 PHYSICAL EXAMINATION: GENERAL: She is awake, alert, oriented x3. She looks much older than her stated age. HEENT: Mildly reduced carotid upstrokes. She has a very loud left carotid bruit, I did not appreciate a bruit on the right. Her sclerae are anicteric. Her hearing is normal. LUNGS: Decreased breath sounds with faint crackles in the bases bilaterally. HEART: Regular rate and rhythm. No appreciable murmurs, rubs or gallops. ABDOMEN: Soft, nontender, chronically distended. Positive bowel sounds. EXTREMITIES: Trace to mild bilateral lower extremity edema. PSYCHIATRIC: Her affect appeared appropriate. DIAGNOSTIC STUDIES: Echocardiogram: Mild ischemic cardiomyopathy with multiple regional wall motion abnormalities involving the mid to distal inferior wall, distal anterior wall, apex and the mid to distal septum. EF 45%-50%. The right ventricle was not well seen. She has mild aortic stenosis with heavy calcification of the aortic valve leaflets into the intravalvular fibrosa. Her pulmonary artery pressures could not be assessed. IMPRESSION: 1. Afsdc-[id number] systolic heart failure. 1b. Mild ischemic cardiomyopathy. 2. Echocardiogram consistent with multivessel coronary artery disease. 3. Diabetes mellitus type 2, uncontrolled. 4. Hypertension. 5. Hyperlipidemia. 6. Obesity. 7. Previous refusal to take statin therapy. 8. Loud carotid bruit on the left With a 40% internal carotid artery stenosis Plan for cardiac catheterization today to define her coronary anatomy given her ischemic heart myopathy and the concern that she has wall motion abnormalities involving two-vessel coronary artery disease. I will stop her losartan and switch her over to valsartan 320 mg daily which has a better blood pressure effect. Her weight is down another kilogram from yesterday once her catheterization is completed we can continue to diurese her further. At this point her BUN and creatinine remained stable and she is not prerenal nor she hypokalemic. She lives in [facility] having a primary care provider there. Once she is ready for discharge she will need normally with a primary care provider but a websphere commerce architect in the area as well. Unfortunate her blood sugars still remain significantly elevated. In addition she needs to consider smoking cessation. Further recommendations will be forthcoming after catheterization
[2018-08-01] MEDS: INSULIN ASPART 100 UNITS/ML 3 ML PEN SC SCH ×4 (10:03→20:55)
[2018-08-01] MEDS: VALSARTAN 80 MG TAB PO SCH (11:23)
[2018-08-01] MEDS ORDERED: MIDAZOLAM HCL 1 MG/ML 2ML VIAL ONE ×3 (11:46→13:10)
[2018-08-01] MEDS ORDERED: HEPARIN (PORCINE) 1000 UNIT/ML 10 ML (CATH LAB USE ONLY) ONE (11:46)
[2018-08-01] MEDS ORDERED: fentaNYL citrate 100 MCG/2 ML VIAL ONE ×2 (11:46→12:46)
[2018-08-01] MEDS ORDERED: NiCARDipine HCL INJ 2.5 MG/ML 10 ML AMP ONE (11:46)
[2018-08-01] MEDS ORDERED: NITROGLYCERIN/D5W 100MCG/ML 20ML SYR ONE (11:47)
[2018-08-01] MEDS ORDERED: ADENOSINE IV SOLN 3 MG/ML 20 ML VIAL IV ONE (13:00)
--- NOTE | 2018-08-01 14:06 | Cardiology Consultation ---
Date of Consultation August 01, 2018 Assessment & Plan (1) Ischemic cardiomyopathy: 2. Acute heart failure 3. Uncontrolled diabetes 4. Hypertension 5. Dyslipidemia 6. Ongoing tobacco abuse 7. Family history of premature coronary disease involving sister in her 50s Patient was admitted with new acute heart failure which responded to IV diuretics, breathing now at baseline. She was found to have mild LV dysfunction with multiple regional wall motion abnormalities. In the setting of numerous ASCVD risk factors elevated concern for high risk coronary artery disease. Agree with proceeding with cardiac catheterization. Discussed risk, benefits, alternatives of procedure with patient and her family. They are willing to proceed. Plan to perform via right radial artery. History of Present Illness Attending Physician: Rolan Ortega MD History of Present Illness Mrs. Johnson is a 53-year-old woman with a history of long-standing, uncontrolled type 2 diabetes, obesity, hypertension, hyperlipidemia, chronic tobacco abuse, family history of premature coronary disease who was admitted with new acute heart failure. Troponin minimally elevated at 0.047, EKG with LVH and inferolateral T wave inversions. Echo showed mild LV dysfunction with an EF of 45% and severely hypokinetic mid to distal inferior septum, distal anterior wall and apex and mid to distal inferior wall with severe LVH. Patient is been treated with IV diuretics and states breathing now back to baseline. Interventional cardiology consulted in the setting of new heart failure, mild LV dysfunction with regional wall motion abnormalities for cardiac catheterization.. Allergies Allergy/AdvReac Type Severity Reaction Status Date / Time ketorolac [From Toradol] Allergy Unknown Unknown Verified 07/30/18 03:57 Home Medications Home Medications Medication Instructions Recorded Confirmed Type amlodipine 10 mg PO DAILY 07/30/18 07/30/18 History aspirin 81 mg PO DAILY 07/30/18 07/30/18 History furosemide [Lasix] 20 mg PO DAILY 07/30/18 07/30/18 History glimepiride 2 mg PO BID 07/30/18 07/30/18 History ibuprofen 800 mg PO TID PRN 07/30/18 07/30/18 History insulin glargine [Lantus Solostar 70 unit SUBCUT HS 07/30/18 07/30/18 History U-100 Insulin] losartan 50 mg PO DAILY 07/30/18 07/30/18 History metformin 1,000 mg PO BID 07/30/18 07/30/18 History metoprolol tartrate 50 mg PO BID 07/30/18 07/30/18 History omeprazole 20 mg PO BID 07/30/18 07/30/18 History sitagliptin [Januvia] 100 mg PO DAILY 07/30/18 07/30/18 History Patient History Medical History Tobacco abuse Essential hypertension Acute respiratory failure with hypoxia Poorly controlled type 2 diabetes mellitus Ischemic cardiomyopathy Acute on chronic clinical systolic heart failure (Acute) Diabetes Hernia Hypertension Surgical History H/O knee surgery Family History Father Diabetes Mother Cancer Other Heart disease Hypertension Social History Preferred Language: Faroese Communication Ability: Effective Shoe Designer Required: No Beliefs That Will Affect Care: None Current Living Situation: Alone Other Information That Helps Us Care for You: No Feels Safe at Home: Yes Safety Concerns: Feels Safe At This Time Smoking Status: Current every day smoker Tobacco Type: cigarettes Cigarettes Per Day: 40 Do You Dip or Chew Tobacco: No Second Hand Exposure: No Tobacco Cessation Education Requested by Patient: No Hx Alcohol Use: No Hx Substance Use: No Physical Exam Physical Exam: General: Comfortable, no acute distress, obese Eyes: Sclerae anicteric, extraocular movements intact HENT: Oropharynx clear mucous membranes moist Lungs: Clear to auscultation bilaterally, no rhonchi or wheezes Cardiac: Regular rate and rhythm, no murmurs, rubs or gallops. Vascular: 2+ radial, DP and PT pulses. No varicosities. Abdomen: Soft, nontender, nondistended, positive bowel sounds. Extremities: Well perfused, no peripheral edema Skin: No rashes or lesions. Neuro: Nonfocal Psych: Alert orient x3, normal affect and mood Results & Data Vital Signs (Past 12 Hours) Vital Signs Temp Pulse Pulse Resp BP Pulse Ox 08/01/18 11:39 36.5 C 74 20 126/79 96 08/01/18 08:00 77 08/01/18 07:12 36.9 C 77 18 146/81 H 94 08/01/18 03:50 36.9 C 78 19 137/81 94
--- NOTE | 2018-08-01 14:07 | Pre Anesthesia Assessment ---
Date of Service August 01, 2018 Pre Sedation Assessment Vital Signs Temp Pulse Pulse Resp BP Pulse Ox 08/01/18 11:39 36.5 C 74 20 126/79 96 08/01/18 08:00 77 08/01/18 07:12 36.9 C 77 18 146/81 H 94 08/01/18 03:50 36.9 C 78 19 137/81 94 07/31/18 23:32 36.8 C 79 17 154/84 H 94 07/31/18 19:49 37.2 C 90 18 152/81 H 97 07/31/18 15:40 37.1 C 88 20 164/90 H 92 Cardiovascular RRR, no murmur, no edema Respiratory normal respiratory effort, lungs clear to auscultation Pre-Sedation Airway Assessment Smoking Status: Current every day smoker Hx Sleep Apnea: No Short, Thick Neck: No Thyromental Distance: > or= 3.5 Finger Breadths Oral Cavity: + WNL Mallampati Class: IV ASA: ASA3 NPO Status Date of Last Intake of Fluids: 08/01/18 Time of Last Intake of Fluids: 08:00 Last Oral Intake of Fluids Comment: sip with meds Date of Last Intake of Solid Food: 07/31/18 Procedure Planning Contraindications for Sedation: none Current Medications Reviewed: Yes Notes The planned sedation has been discussed with the patient. Informed Consent was obtained. I have identified the patient, determined the appropriateness of sedation and have assessed the patient immediately prior to the procedure. All medicine(s) and interventions are by my order.
--- NOTE | 2018-08-01 14:08 | Post Anesthesia Assessment ---
Date of Service August 01, 2018 Post Sedation Assessment Vital Signs Temp Pulse Pulse Resp BP Pulse Ox 08/01/18 11:39 36.5 C 74 20 126/79 96 08/01/18 08:00 77 08/01/18 07:12 36.9 C 77 18 146/81 H 94 08/01/18 03:50 36.9 C 78 19 137/81 94 07/31/18 23:32 36.8 C 79 17 154/84 H 94 07/31/18 19:49 37.2 C 90 18 152/81 H 97 07/31/18 15:40 37.1 C 88 20 164/90 H 92 Recovery Score Activity: Moves 4 extremities Respiration: Deep Breath/Cough Circulation: +/-20% PreAnes Value Consciousness: Fully Awake Oxygen Saturation: O2 needed for >90% Discharge Sedation Level of Care: Fast Track Phase II Post Sedation Plan On clinical assessment, the patient appears to have tolerated the sedation without complications. Patient is recovering as anticipated. Patient will continue to be monitored by nursing and may be discharged when sedation discharge criteria are met per below protocol. Upon Completions of procedure and additional 15 minutes continue every 5 minute vital signs and the P.A.R. score; then discharge to a Phase I or Fast Track to Phase II per the following guidelines: * Discharge Patient to appropriate Phase II area if PAR is 8 or greater or return to pre- procedure baseline. The post - procedure orders will be as directed. * If PAR score is less than 8 or not return to pre-procedure baseline then patient will follow Phase I monitoring till PAR is reached for Phase II. The Phase I may be done in procedure room or may call to secure a Phase I area. * If naloxone or flumazenil are used for reversal, hold in Phase I for continued monitoring from when last reversal dose was given for a minimum of 60 minutes or longer pending the nurse and/or physician discretion of patient condition before discharge to Phase II. Please call the Sedation Physician to re-evaluate and complete post-note for discharge to Phase II area. Do NOT discharge from procedure sedation or Phase 1 until post- sedation evaluation note is complete by procedure /sedation MD Sedation Discharge Instructions to be given to the patient at discharge to home.
--- NOTE | 2018-08-01 14:22 | Cardiac Catheterization ---
Cardiac Cath Procedure Full Procedure Date August 01, 2018 Pre-Procedure Diagnosis Pre-Procedure Diagnosis: Non STEMI, CHF and Cardiomyopathy AUC Score AUC Score: 7 Post-Procedure Diagnosis Post-Procedure Diagnosis: Severe CAD and Elevated Intracardiac Pressures Procedure(s) Performed Procedure(s) Performed: Coronary Angiography, Left Heart Cath and Fractional Flow Iola Masseur/Masseuse Jose Russell MD Final Inspector Motorcyles(s) Swapna Estimated Blood Loss Estimated Blood Loss: 15 Medication(s) Medication(s): Adenosine, Fentanyl, Heparin, Lidocaine 1%, Nicardipine, Nitroglycerin and Versed Summary of Findings Indication: New acute heart failure, cardiomyopathy with regional wall motion abnormalities, multiple ASCVD risk factors Access: 6 Fr right radial artery Catheters: [place], 5 Fr EBU 3.5 guide Findings: LM -luminal irregularities LAD -diffuse proximal 60% disease prior to bifurcation with large first diagonal. Mid to distal luminal irregularities. 60-70% proximal first diagonal. Circumflex -moderate caliber vessel with 50 to 60% ostial stenosis, mid segment luminal irregularities, moderate caliber OM 2 with 50% ostial stenosis. Ramus- proximal subtotal occlusion with PEBBLES I flow in bifurcating small vessel RCA -moderate caliber vessel, 70-80% early mid segment disease, right PDA with subtotal mid segment occlusion. Small right PLB occluded and partially fills via left to right collateral LVEDP -27 Arterial Closure: TR band FFR of proximal LAD Left main cannulated with 5 Fr EBU 3.5 guide (unable to pass 6 Fr guide to ascending aorta due to brachial artery spasm/stenosis). Straight [place] FFR wire placed into mid LAD FFR 0.73 FFR wire removed from LAD and placed into circumflex IFR 0.89 Post procedure angiography revealed no apparent coronary complications. Summary: 1. Severe multi-vessel coronary artery disease -60% diffuse proximal disease (obstructive disease by FFR0.73). 60 to 70% proximal first diagonal 50 to 60% ostial circumflex (borderline by IFR 0.89). 50% ostial OM 2 Subtotally occluded proximal ramus 70-80% early mid RCA, subtotal mid right PDA occlusion 2. Elevated intracardiac filling pressure Recommendations: With severe multivessel disease, long-standing diabetes recommend evaluation for bypass surgery. Continued diuresis in setting of elevated LV filling pressures. Hemodynamics Rest Ao:: 151/76/105 Final Ao: 129/67/90 LV: 170/27 Recommendations Recommendations: Medical Therapy and/or Counseling and CABG Specimens Specimens: None Radiation Exposure (mGy) 3343 Contrast (mls) 180 Fluids (cc crystalloids) Fluids (cc crystalloids): 50 Drains Drains: None Anesthesia Moderate Procedural Complication(s) None Disposition PCU ACC Data: Repairer Art Objects Cardiac Status Clinical evaluation leading to the procedure CAD Presenation: Non STEMI Anginal Classification: No Symptoms Heart Failure: NYHA Class: CCS III Cardiogenic Shock within 24 Hours: No Cardiac Arrest within 24 Hours: No Imaging Studies Past 6 Months: Yes Stress Studies Past 6 Months: No Diagnostic Physicians Name: Jose Russell MD Closure Device Percutaneous Entry Location: Radial Closure Device: Radial Band Recommendations: Medical Therapy and/or Counseling and CABG Intraprocedure Events Significant Disection: No Perforation: No
--- NOTE | 2018-08-01 14:53 | Hospitalist Progress Note ---
Date of Service August 01, 2018 Assessment & Plan (1) Acute on chronic clinical systolic heart failure: LVEF was 45-50% on echo on 07/30 with severe LVH and mid-distal inferoseptum, distal anteroir wall, apex, and mid-distal inferior wall severely hypokinetic. - Continue intravenous Lasix diuresis - Monitor intake and output. - LHC on 08/01 showed: - 60% diffuse proximal disease (obstructive disease by FFR0.73). 60 to 70% proximal first diagonal - 50 to 60% ostial circumflex (borderline by IFR 0.89). 50% ostial OM 2 - Subtotally occluded proximal ramus - 70-80% early mid RCA, subtotal mid right PDA occlusion - Recommend cardiac bypass evaluation (2) Ischemic cardiomyopathy: Echo as above. - Plan as above (3) Poorly controlled type 2 diabetes mellitus: A1c was 9.2% this admission. - Continue diabetic diet and sliding scale insulin coverage - Metformin is on hold. (4) Acute respiratory failure with hypoxia: The patient presented with labored respirations, respiratory rate 30, oxygen saturation on room air in the 70 to 80% range according to EMS. This has since resolved. - Possibly due to her mild NSTEMI - Resolved as of 07/31 (5) Essential hypertension: BP consistently elevated at 165/90. - Losartan -> valsartan on 08/01 for better BP control (6) Tobacco abuse: The patient was counseled to stop smoking. (7) DVT prophylaxis: Continue subcutaneous heparin therapy Subjective Feels fine. Would like to be discharged. No shortness of breath. Reports no fevers/chills, chest pain, shortness of breath, abdominal pain, nausea, or vomiting. Review of Systems Cardiovascular: no chest pain and no dyspnea Physical Exam Constitutional: + morbidly obese; no acute distress and no altered mental status Eyes: PERRL, conjunctivae normal, anicteric sclerae ENMT: external ear and nose normal, oropharynx normal Neck: trachea midline, no thyromegaly Respiratory: normal respiratory effort, lungs clear to auscultation Cardiovascular: RRR, no murmur, no edema Gastrointestinal (Abdomen): normal bowel sounds, soft, nontender, no hepatosplenomegaly Musculoskeletal: no cyanosis or clubbing, extremities motor strength 5/5 Neurologic: CN's II-XI intact bilaterally; no focal motor deficits Results & Data Vital Signs (Past 12 Hours) Vital Signs Temp Pulse Pulse Resp BP Pulse Ox 08/01/18 14:30 36.6 C 74 18 161/92 H 94 08/01/18 14:14 36.6 C 90 18 08/01/18 14:00 36.3 C L 78 18 140/72 3 L 08/01/18 11:39 36.5 C 74 20 126/79 96 08/01/18 08:00 77 08/01/18 07:12 36.9 C 77 18 146/81 H 94 08/01/18 03:50 36.9 C 78 19 137/81 94
[2018-08-01] MEDS: INSULIN GLARGINE 100 UNIT/ML VIAL SQ SCH (20:55)
[2018-08-02] MEDS: HEPARIN SOD 5,000 UNIT/0.5 ML VIAL SQ SCH ×2 (05:13→14:41)
[2018-08-02 06:18] LABS: Hematocrit (blood only) 36.7 % (37-47); Hemoglobin 12.1 g/dL (12.0-16.0); Mean Corpuscular Volume 85.7 fL (80-100); Mean Platelet Volume 9.8 fL (7.4-10.4); Platelet Count 280 K/uL (130-400); RDW Coefficient of Variation 16.1 % (11.5-14.5); RDW Standard Deviation 50.5 fL (36.4-46.3); Red Blood Count 4.28 M/uL (4.2-5.4); White Blood Count 8.65 K/uL (4.8-10.8)
[2018-08-02 06:50] LABS: BUN Creatinine Ratio 15.4 (10-20); Calcium 8.7 mg/dl (8.5-10.1); Creatinine Clr Calc Pharmacy 132.8 ml/min; Est GFR (African American) 121.7; Potassium 3.8 mmol/L (3.5-5.1)
[2018-08-02] MEDS: ROSUVASTATIN CALCIUM 10 MG TAB PO SCH (07:42)
[2018-08-02] MEDS: PANTOprazole 40 MG TAB PO SCH ×2 (07:42→20:49)
[2018-08-02] MEDS: ASPIRIN 81 MG ECTAB PO SCH (07:42)
[2018-08-02] MEDS: POTASSIUM CHLORIDE 10 MEQ TABCR PO SCH ×2 (07:43→20:49)
[2018-08-02] MEDS: METOPROLOL TARTRATE 50 MG TAB PO SCH ×2 (07:43→20:50)
[2018-08-02] MEDS: VALSARTAN 80 MG TAB PO SCH (07:43)
[2018-08-02] MEDS: AMLODIPINE BESYLATE 5 MG TAB PO SCH (07:44)
[2018-08-02] MEDS: INSULIN ASPART 100 UNITS/ML 3 ML PEN SC SCH ×4 (07:48→20:54)
--- NOTE | 2018-08-02 09:33 | Cardiology Progress Note ---
Date of Service As well this morning her shortness of breath continues to improve. Her lower extremity edema and abdominal distention have improved she has any chest pain or chest pressure. She has any lightheadedness dizziness presyncope or syncope. She denies a cough fevers chills or sweats. She denies any wrist discomfort after catheterization. She has a 2+ right radial pulse. She has not smoked since she has been in the hospital since Wednesday. She is hoping to stop smoking completely. The rest of a complete review of systems is otherwise negative August 02, 2018 Results & Data Vital Signs (Past 12 Hours) Vital Signs Temp Pulse Pulse Resp BP Pulse Ox 08/02/18 08:07 36.8 C 80 20 138/85 97 08/02/18 08:00 74 08/02/18 07:00 36.5 C 74 16 150/86 H 97 08/02/18 03:37 37.0 C 86 18 164/97 H 93 08/01/18 23:26 36.5 C 79 18 137/69 95 Cath Findings: LM -luminal irregularities LAD -diffuse proximal 60% disease prior to bifurcation with large first diagonal. Mid to distal luminal irregularities. 60-70% proximal first diagonal. Circumflex -moderate caliber vessel with 50 to 60% ostial stenosis, mid segment luminal irregularities, moderate caliber OM 2 with 50% ostial stenosis. Ramus- proximal subtotal occlusion with PEBBLES I flow in bifurcating small vessel RCA -moderate caliber vessel, 70-80% early mid segment disease, right PDA with subtotal mid segment occlusion. Small right PLB occluded and partially fills via left to right collateral LVEDP -27 PHYSICAL EXAMINATION: GENERAL: She is awake, alert, oriented x3. She looks much older than her stated age. HEENT: Mildly reduced carotid upstrokes. She has a very loud left carotid bruit, I did not appreciate a bruit on the right. Her sclerae are anicteric. Her hearing is normal. LUNGS: Decreased breath sounds with faint wheezing bilaterally. HEART: Regular rate and rhythm. No appreciable murmurs, rubs or gallops. ABDOMEN: Soft, nontender, chronically distended. Positive bowel sounds. EXTREMITIES: No lower extremity edema. PSYCHIATRIC: Her affect appeared appropriate. DIAGNOSTIC STUDIES: Echocardiogram: Mild ischemic cardiomyopathy with multiple regional wall motion abnormalities involving the mid to distal inferior wall, distal anterior wall, apex and the mid to distal septum. EF 45%-50%. The right ventricle was not well seen. She has mild aortic stenosis with heavy calcification of the aortic valve leaflets into the intravalvular fibrosa. Her pulmonary artery pressures could not be assessed. IMPRESSION: 1. [id number] systolic heart failure. 1b. Mild ischemic cardiomyopathy. 2. Echocardiogram and Cath consistent with multivessel coronary artery disease. 3. Diabetes mellitus type 2, uncontrolled. 4. Hypertension. 5. Hyperlipidemia. 6. Obesity. 7. Previous refusal to take statin therapy. 8. Loud carotid bruit on the left With a 40% internal carotid artery stenosis She feels much better this morning. She continues to diurese well. Her weight is down. Her lower extremity edema and abdominal distention have improved. She would like to have bypass surgery done before she returns to [facility]. She notes that the nearest hospital to have heart surgery to be 3 hours away. In discussion with her and with Dr. Russell yesterday she would like to be transferred to [facility] for bypass surgery before returning home. We will arrange for transfer to [facility]. I am currently on the phone with them. Dr. ROMERO will accept the patient in transfer to an [facility] level bed. Her BUN and creatinine are stable and I will continue with her IV diuretics up until the time of surgery. All this was discussed with the patient and her [id number] as well as the hospitalist service.
[2018-08-02] MEDS: FUROSEMIDE 40 MG in SYRINGE 0 ML IV SCH ×2 (11:20→17:53)
--- NOTE | 2018-08-02 13:50 | Hospitalist Progress Note ---
Date of Service August 02, 2018 Assessment & Plan (1) Acute on chronic clinical systolic heart failure: LVEF was 45-50% on echo on 07/30 with severe LVH and mid-distal inferoseptum, distal anterior wall, apex, and mid-distal inferior wall severely hypokinetic. - Continue intravenous Lasix diuresis - Monitor intake and output. - LHC on 08/01 showed: - 60% diffuse proximal disease (obstructive disease by FFR0.73). 60 to 70% proximal first diagonal - 50 to 60% ostial circumflex (borderline by IFR 0.89). 50% ostial OM 2 - Subtotally occluded proximal ramus - 70-80% early mid RCA, subtotal mid right PDA occlusion - Recommend cardiac bypass evaluation - Plan for transfer to [place] (2) Ischemic cardiomyopathy: Echo as above. - Plan as above (3) Poorly controlled type 2 diabetes mellitus: A1c was 9.2% this admission. - Continue Lantus 70 units QHS - Continue diabetic diet and sliding scale insulin coverage - Metformin is on hold. (4) Acute respiratory failure with hypoxia: The patient presented with labored respirations, respiratory rate 30, oxygen saturation on room air in the 70 to 80% range according to EMS. This has since resolved. - Possibly due to her acute CHF and mild NSTEMI - Resolved as of 07/31 (5) Essential hypertension: BP consistently elevated at 165/90. - Losartan -> valsartan on 08/01 for better BP control (6) Tobacco abuse: The patient was counseled to stop smoking. (7) DVT prophylaxis: Continue subcutaneous heparin therapy Subjective Feels well. Reports no fevers/chills, chest pain, shortness of breath, abdominal pain, nausea, or vomiting. Review of Systems Cardiovascular: no chest pain at rest, no dyspnea and no dyspnea at rest Physical Exam Constitutional: + morbidly obese; no acute distress and no altered mental status Eyes: PERRL, conjunctivae normal, anicteric sclerae ENMT: external ear and nose normal, oropharynx normal Neck: trachea midline, no thyromegaly Respiratory: normal respiratory effort, lungs clear to auscultation Cardiovascular: RRR, no murmur, no edema Gastrointestinal (Abdomen): normal bowel sounds, soft, nontender, no hepatosplenomegaly Musculoskeletal: no cyanosis or clubbing, extremities motor strength 5/5 Neurologic: CN's II-XI intact bilaterally; no focal motor deficits Results & Data Vital Signs (Past 12 Hours) Vital Signs Temp Pulse Pulse Resp BP Pulse Ox 08/02/18 10:41 36.6 C 71 19 138/78 95 08/02/18 08:07 36.8 C 80 20 138/85 97 08/02/18 08:00 74 08/02/18 07:00 36.5 C 74 16 150/86 H 97 08/02/18 03:37 37.0 C 86 18 164/97 H 93
--- NOTE | 2018-08-02 15:47 | Discharge Summary ---
Date of Service August 02, 2018 Admission HPI Per Admitting Provider 53 y/o F Hx HTN, DM II, LE edema, obese, smoker. Presented to the ER in moderate respiratory distress. She is in [place] visiting her son who has a welding job in the area. She states she was in her normal state of health the prior evening and had enjoyed a shrimp platter at [email or web address]. She became progressively short of breath this AM. She has a cough which she states is chronic and denies fevers. She described central chest pressure to EMS on route to the hospital. She denies any nausea, vomiting or diaphoresis. She received 4 NTG from EMS and is CP-free at the time of admission. A CTA of the chest was obtained in the ER and demonstrated pulmonary edema. She denies a history of CAD or CHF. The pt responded well to IV Lasix. Initial labs including cardiac enzymes are unremarkable. An EKG displayed lateral and inferior inversions with slight ST depressions. This was unchanged when repeated after her respiratory status improved. PMH: 1) HTN 2) DM II 3) LE edema 4) Smoker Social: Smokes 2 packs of cigarettes daily, does not drink Family: Father due to ETOH cirrhosis Mother due to ovarian CA Principal Diagnosis Systolic CHF failure due to ischemic cardiomyopathy Discharge Exam Constitutional + morbidly obese; no acute distress and no altered mental status Eyes PERRL, conjunctivae normal, anicteric sclerae ENMT external ear and nose normal, oropharynx normal Neck trachea midline, no thyromegaly Respiratory normal respiratory effort, lungs clear to auscultation Cardiovascular RRR, no murmur, no edema Gastrointestinal (Abdomen) normal bowel sounds, soft, nontender, no hepatosplenomegaly Musculoskeletal no cyanosis or clubbing, extremities motor strength 5/5 Neurologic CN's II-XI intact bilaterally; no focal motor deficits Discharge Data Allergies Allergy/AdvReac Type Severity Reaction Status Date / Time ketorolac [From Toradol] Allergy Unknown Unknown Verified 07/30/18 03:57 Consultations 07/30/18 05:25 ED Decision to Admit Stat 07/30/18 07:27 Consult Cardiology Routine 07/31/18 12:29 Consult Cardiac Catheterization Routine 08/02/18 10:55 Burn CD for patient Stat Procedures Performed Operation Date: 08/01/18 12:00 Actual Procedures p Cath, Left with Cors and Vent - Kev Russell MD s Cineradiography w/Routine Exam - Kev Russell MD s Fraction Flow [place] SGL Ty Russell MD s Fraction Flow [place] Addl Ty Russell MD Ordered Studies 07/30/18 04:42 CT angio chest PE protocol Stat 07/30/18 11:46 US carotid doppler BI Routine 08/01/18 11:50 CL Cath Imgs for PACS use only Routine Hospital Course (1) Acute on chronic clinical systolic heart failure: LVEF was 45-50% on echo on 07/30 with severe LVH and mid-distal inferoseptum, distal anterior wall, apex, and mid-distal inferior wall severely hypokinetic. - Continue Lasix diuresis at 40mg IV BID - LHC on 08/01 showed: - 60% diffuse proximal disease (obstructive disease by FFR0.73). 60 to 70% proximal first diagonal - 50 to 60% ostial circumflex (borderline by IFR 0.89). 50% ostial OM 2 - Subtotally occluded proximal ramus - 70-80% early mid RCA, subtotal mid right PDA occlusion - Recommend cardiac bypass evaluation - Plan for transfer to [place] (2) Ischemic cardiomyopathy: Echo as above. - Continued ASA, beta-jasmina, statin, and ARB - Plan otherwise as above (3) Poorly controlled type 2 diabetes mellitus: A1c was 9.2% this admission. - Continue Lantus 70 units QHS - Continue diabetic diet and sliding scale insulin coverage - Metformin, glipizide, and Januia are on hold. (4) Acute respiratory failure with hypoxia: The patient presented with labored respirations, respiratory rate 30, oxygen saturation on room air in the 70 to 80% range according to EMS. This has since resolved. - Possibly due to her acute CHF and mild NSTEMI - Resolved as of 07/31 (5) Essential hypertension: BP consistently elevated at 165/90. - Losartan -> valsartan 320mg PO daily on 08/01 for better BP control (6) Tobacco abuse: The patient was counseled to stop smoking. (7) DVT prophylaxis: Continue subcutaneous heparin therapy Total Time Total Time Spent Total Time Spent (In Minutes): 35 Total Time Includes: Examination of the Patient, Discharge Planning, Medication Reconciliation and Communication With Other Providers Discharge Plan Discharge Items Patient Disposition: Transfer Acute Care Hospital Reason For Visit: PULMONARY EDEMA Discharge Diagnosis: Diffuse coronary artery disease and systolic CHF Discharge Goals: Diagnostic testing and Therapeutic intervention Activity: Resume your previous activity Non-emergency contact: Primary Care Provider and Machine Farmworker Call non-emergency contact if: your temperature is above 100.5 Follow-up/Referrals: Yung MOORE [Other] - 08/09/18 1:00 pm (Please, follow up at [facility] with Yung MOORE on WednesdayAugust 09 at 1:00 pm. *If you need to change this appointment, call the office at [phone].) Diet: Carb Consistent or DM2 and Heart Healthy Addtl Provider Instructions: Ms. Johnson was admitted with shortness of breath and found to have systolic CHF. Cath was done on 08/01 with diffuse disease. Plan for transfer to [place] for CABG. Prescriptions: New heparin, porcine (PF) 5,000 unit/0.5 mL Syringe 5,000 unit subcut Q8 Qty: 1 RF: 0 nicotine [Nicoderm CQ] 21 mg/24 hr Patch 24 Hour 21 mg transdermal QAM PRN (Reason: nicotine cravings) Qty: 1 RF: 0 Novolog Flexpen U-100 Insulin 100 unit/mL (3 mL) Insulin Pen 1 cf unit SC ACHS Qty: 1 RF: 0 rosuvastatin [Crestor] 10 mg Tablet 10 mg PO QAM Qty: 1 RF: 0 potassium chloride [Klor-Con M10] 10 mEq Tablet,Er Particles/Crystals 20 meq PO BID Qty: 1 RF: 0 valsartan [Diovan] 80 mg Tablet 320 mg PO QAM Qty: 1 RF: 0 Continued amlodipine 10 mg Tablet 10 mg PO DAILY RF: 0 Lantus Solostar U-100 Insulin 100 unit/mL (3 mL) Insulin Pen 70 unit SUBCUT HS RF: 0 aspirin 81 mg Tablet,Delayed Release (Dr/Ec) 81 mg PO DAILY RF: 0 metoprolol tartrate 50 mg Tablet 50 mg PO BID RF: 0 omeprazole 20 mg Capsule,Delayed Release(Dr/Ec) 20 mg PO BID RF: 0 Discontinued losartan 50 mg Tablet 50 mg PO DAILY RF: 0 furosemide [Lasix] 20 mg Tablet 20 mg PO DAILY RF: 0 metformin 1,000 mg Tablet 1,000 mg PO BID RF: 0 ibuprofen 800 mg Tablet 800 mg PO TID PRN (Reason: Pain) RF: 0 Januvia 100 mg Tablet 100 mg PO DAILY RF: 0 glimepiride 2 mg Tablet 2 mg PO BID RF: 0 Stand-Alone Forms: [facility] Discharge Orders: Discharge Order (Routine); Ordered 08/02/18 Ordered By: Rolan Ortega Admission Data Admit Date/Time: 07/30/18 06:17 Attending Provider: Rolan Ortega Admit Provider: Eduardo Theodore Primary Care Provider: Yung Mathew Other Providers: Eduardo Theodore ; Maurizio Ross ; Kev Russell Service: Telemetry
[2018-08-02] MEDS: INSULIN GLARGINE 100 UNIT/ML VIAL SQ SCH (20:55)
== END 2018-08-02 22:04 | disposition short-term general hospital (02) | DRG 280 ==
LOC: ED 03:19 → SUATTDRO 06:17 → 2S 06:17